=== PATIENT | male | born 1990 | race Caucasian/White ===

== ENCOUNTER 2018-03-17 12:49 | Emergency (ER) | payer BC, OTHER ==
--- NOTE | 2018-03-17 13:18 | EDM.PDOC ---
ED HPI GENERAL MEDICAL PROBLEM - General Chief Complaint: Abdominal Pain Stated Complaint: LOWER ABDOMINAL PAIN [id number] Time Seen by Provider: 03/17/18 13:22 Source of Information: Reports: Patient History Limitations: Reports: No Limitations - History of Present Illness INITIAL COMMENTS - FREE TEXT/NARRATIVE: Patient presents today with a several month history of intermittent abdominal pain. The pain is diffuse but lately has been appreciated more in the lower abdominal quadrants. Some worsening of the pain over the last three days. He reports that it is of a pressure quality and is severe at rest and resolves with activity. No other alleviating or aggravating factors. He has had loose stools. No hematochezia or melena. No vomiting but he does have some nausea. No fevers but he does state he has had chills and sweats. He has no personal or family history of inflammatory bowel disease. He has not taken any medications for this at this time. Duration: Minutes: Abdomen Pain Score (Numeric/FACES): 3 - Related Data Allergies Allergy/AdvReac Type Severity Reaction Status Date / Time Penicillins Allergy Cannot Verified 11/11/13 14:03 Remember Home Meds: Home Meds . [No Known Home Meds] 11/11/13 [History] Past Medical History - Past Health History Medical/Surgical History: Denies Medical/Surgical History Social & Family History - Family History Family Medical History: Noncontributory - Tobacco Use Smoking Status *Q: Never Smoker Second Hand Smoke Exposure: No - Caffeine Use Caffeine Use: Reports: Soda - Alcohol Use Days Per Week of Alcohol Use: 1 Number of Drinks Per Day: 2 Total Drinks Per Week: 2 - Recreational Drug Use Recreational Drug Use: No ED ROS GENERAL - Review of Systems Review Of Systems: See Below Constitutional: Reports: Other (See HPI) HEENT: Denies: Ear Discharge, Ear Pain, Eye Discharge, Eye Pain, Nose Pain, Throat Pain, Vision Change Respiratory: Reports: No Symptoms Cardiovascular: Reports: No Symptoms Endocrine: Denies: Polydypsia, Polyuria GI/Abdominal: Reports: Other (See HPI) : Denies: Dysuria, Hematuria Musculoskeletal: Reports: No Symptoms Skin: Reports: No Symptoms Neurological: Reports: No Symptoms Psychiatric: Reports: No Symptoms ED EXAM, GI/ABD - Physical Exam Exam: See Below Exam Limited By: No Limitations General Appearance: Alert, WD/WN, No Apparent Distress Eyes: Bilateral: Normal Appearance, EOMI Ears: Normal External Exam, Normal Canal, Hearing Grossly Normal, Normal TMs Nose: Normal Inspection, Normal Mucosa, No Blood Throat/Mouth: Normal Inspection, Normal Lips, Normal Teeth, Normal Gums, Normal Oropharynx, Normal Voice, No Airway Compromise Head: Atraumatic, Normocephalic Neck: Normal Inspection, Supple, Non-Tender Respiratory/Chest: No Respiratory Distress, Lungs Clear, Normal Breath Sounds Cardiovascular: Regular Rate, Rhythm, No Edema, No Murmur GI/Abdominal Exam: Normal Bowel Sounds, Soft, Other (Mild distention. Mild pain with palpation of lower abdominal quadrants without guarding or rigidity. ) (Male) Exam: Deferred Back Exam: Normal Inspection. No: CVA Tenderness (L), CVA Tenderness (R) Extremities: Normal Inspection, Non-Tender, No Pedal Edema Neurological: Alert, Oriented, CN II-XII Intact Psychiatric: Normal Affect, Normal Mood Skin Exam: Warm, Dry, Intact Lymphatic: No Adenopathy Course - Vital Signs Last Recorded V/S: Last Vital Signs Temp 37.4 C 03/17/18 12:54 Pulse 70 03/17/18 12:54 Resp 16 03/17/18 12:54 BP 123/74 03/17/18 12:54 Pulse Ox 97 03/17/18 12:54 - Orders/Labs/Meds Orders: Active Orders 24 hr Category Date Time Status UA W/MICROSCOPIC [URIN] Stat Lab 03/17/18 13:30 Ordered Labs: Laboratory Tests 03/17/18 03/17/18 Range/Units 13:38 13:38 WBC 6.5 (5.0-10.0) 10^3/uL RBC 5.36 (4.6-6.2) 10^6/uL Hgb 16.1 (14.0-18.0) g/dL Hct 45.9 (40.0-54.0) % MCV 85.6 (80-100) fL MCH 30.0 (27.0-34.0) pg MCHC 35.1 H (33.0-35.0) g/dL Plt Count 278 (150-450) 10^3/uL Neut % (Auto) 72.9 (42.2-75.2) % Lymph % (Auto) 19.4 L (20.5-50.1) % Benzie % (Auto) 7.2 (2-8) % Eos % (Auto) 0.2 L (1.0-3.0) % Baso % (Auto) 0.3 (0.0-1.0) % Sodium 137 (135-145) mmol/L Potassium 4.0 (3.6-5.0) mmol/L Chloride 102 (101-111) mmol/L Carbon Dioxide 28.0 (21.0-31.0) mmol/L Anion Gap 11.0 BUN 17 (7-18) mg/dL Creatinine 0.9 (0.6-1.3) mg/dL Est Cr Clr Drug Dosing 128.99 mL/min Estimated GFR (MDRD) > 60 BUN/Creatinine Ratio 18.88 Glucose 91 (74-105) mg/dL Calcium 9.1 (8.4-10.2) mg/dl Total Bilirubin 1.3 H (0.2-1.0) mg/dL AST 27 (10-42) IU/L ALT 42 (10-60) IU/L Alkaline Phosphatase 72 (42-121) IU/L Total Protein 7.8 (6.7-8.2) g/dl Albumin 4.5 (3.2-5.5) g/dl Globulin 3.3 Albumin/Globulin Ratio 1.36 - Re-Assessments/Exams Free Text/Narrative Re-Assessment/Exam: Discussed results with patient. He is comfortable with discharge and follow up with PCP for further work up of abdominal pain. Follow up plan discussed. 03/17/18 14:28 Departure - Departure Time of Disposition: 14:29 Disposition: Home, Self-Care 01 Clinical Impression: Abdominal pain Qualifiers: Abdominal location: lower abdomen, unspecified Qualified Code(s): R10.30 - Lower abdominal pain, unspecified - Discharge Information Instructions: Abdominal Pain, Adult, [id number] Forms: ED Department Discharge Additional Instructions: Follow up with your PCP next week to continue work up for the abdominal pain. May take simethicone over the counter to help with bloating. Follow up for worsening pain or other concerning symptoms. - My Orders Last 24 Hours: My Active Orders 03/17/18 13:30 UA W/MICROSCOPIC [URIN] Stat - Assessment/Plan Last 24 Hours: My Active Orders 03/17/18 13:30 UA W/MICROSCOPIC [URIN] Stat
[2018-03-17 14:09] LABS: CHLORIDE,CL 102 mmol/L (101-111); SODIUM,NA 137 mmol/L (135-145)
== END 2018-03-17 14:42 | disposition home or self-care (01) ==
LOC: DL.ED 12:49
DX: R10.30 Lower abdominal pain, unspecified (principal); Z88.0 Allergy status to penicillin
CPT/HCPCS: 36415; 74018; 80053; 85025; 99284